=== PATIENT | female | born 1980 | race Two or more races ===

== ENCOUNTER 2019-12-04 10:38 | Emergency (ER) | payer MEDICAID, OTHER ==
[~2019-12-04] VITALS: Ht 154.9 cm; Wt 61.2 kg
[~2019-12-04 10:38] MED LIST: ALBUTEROL SULF8.5 GM INH; CIPRO500 MG PO; CIPROFLOXACIN500 M2 ORAL; IBUPROFEN600 MG PO; KEFLEX500 MG ORAL; MACROBID 100 M100 MG PO; NKM; NORCO 5-325 TA1 EACH ORAL; PROMETHAZINE-C118 M1 ORAL; PROTONIX40 MG ORAL; REGLAN10 MG ORAL; TRAMADOL HCL50 MG ORAL; ZOFRAN ODT4 MG ORAL
[2019-12-04 10:51] VITALS: BP 115/66
--- NOTE | 2019-12-04 10:57 | NUR ---
ED Nurse Note: Patient arrived to ED from home with , c/o of cough, earache, and n/v x 3 weeks. She states earache and n/v have improved, but she is here mainly for the persistent cough.
[2019-12-04] MEDS ORDERED: TAMIFLU75 MG ORAL (11:15)
[2019-12-04] MEDS ORDERED: IBUPROFEN600 MG ORAL (11:15)
[2019-12-04] MEDS ORDERED: PROMETHAZINE-C118 M1 ORAL (11:15)
[2019-12-04] MEDS ORDERED: ONDANSETRON ODT4 MG BC (11:15)
--- NOTE | 2019-12-04 11:28 | NUR ---
ER DISCHARGE NOTE: Patient is cleared to be discharged per ERMD, pt is aox4, on room air. Patient was given dc and prescription instructions. Patient was able to verbalize understanding, ID band removed. Patient ambulated out with steady gait with all her belongings.
--- NOTE | 2019-12-05 07:51 | Emergency Room Report ---
History of Present Illness General Chief Complaint: Upper Respiratory Illness Source: Patient Present Illness HPI 39-year-old female presents ED for evaluation. Complaining of cough and congestion for the last 3 days. Productive with yellowish phlegm. Denies fevers or chills. Afebrile in triage. Did not receive flu shot this year. Denies sick contacts or recent travel. No other aggravating relieving factors. Denies any other associated symptoms Allergies: Coded Allergies: No Known Allergies (Unverified , 12/18/12) Patient History Past Medical History: asthma Past Surgical History: none Pertinent Family History: none Social History: Denies: smoking, alcohol use, drug use Now: No Immunizations: UTD Reviewed Nursing Documentation: PMH: Agreed; PSxH: Agreed Nursing Documentation-PMH Past Medical History: No History, Except For Hx Asthma: Yes Review of Systems All Other Systems: negative except mentioned in HPI Physical Exam Vital Signs Date Time Temp Pulse Resp B/P (MAP) Pulse Ox O2 Delivery O2 Flow Rate FiO2 12/04/19 10:42 98.1 75 17 115/66 (82) 98 Room Air Sp02 EP Interpretation: reviewed, normal General Appearance: no apparent distress, alert, GCS 15, non-toxic Head: normocephalic, atraumatic Eyes: bilateral eye normal inspection, bilateral eye PERRL ENT: hearing grossly normal, normal pharynx, no angioedema, normal voice Neck: full range of motion, supple/symm/no masses Respiratory: chest non-tender, lungs clear, normal breath sounds, speaking full sentences Cardiovascular #1: regular rate, rhythm, no edema Cardiovascular #2: 2+ carotid (R), 2+ carotid (L), 2+ radial (R), 2+ radial (L) , 2+ dorsalis pedis (R), 2+ dorsalis pedis (L) Gastrointestinal: normal bowel sounds, non tender, soft, non-distended, no guarding, no rebound Rectal: deferred Genitourinary: normal inspection, no CVA tenderness Musculoskeletal: back normal, normal range of motion, gait/station normal, non- tender Neurologic: alert, motor strength/tone normal, oriented x3, sensory intact, responsive, speech normal Psychiatric: judgement/insight normal, memory normal, mood/affect normal, no suicidal/homicidal ideation Reflexes: 3+ bicep (R), 3+ bicep (L), 3+ tricep (R), 3+ tricep (L), 3+ knee (R) , 3+ knee (L) Lymphatic: no adenopathy Medical Decision Making Diagnostic Impression: Primary Impression: Flu-like symptoms ER Course Hospital Course 39-year-old F presents to ED complaining of bodyaches + cough Differential diagnoses include: URI, pharyngitis, otitis media, influenza Clinical course Patient placed on stretcher. After initial history physical exam reveals young female in no acute distress. Bilateral TM unremarkable, no pharyngeal erythema. Lungs clear. No CVA tenderness. Discussed findings with patient. Will discharge home with Tamiflu, cough medication, Zofran and Motrin. Safe for discharge for close outpatient follow- up. I will provide referrals Diagnosis - influenza-like symptoms Stable and discharged home with prescriptions for tamiflu, motrin, promethazine/ codeine, zofran. drink plenty of fluids. Instructed to followup with PMD. Return to ED if symptoms recur or worsen Last Vital Signs Date Time Temp Pulse Resp B/P (MAP) Pulse Ox O2 Delivery O2 Flow Rate FiO2 12/04/19 10:51 98.1 89 17 115/66 98 Room Air Status: improved Disposition: HOME, SELF-CARE Condition: Stable Scripts Ibuprofen* (MOTRIN*) 600 Mg Tablet 600 MG ORAL Q8H PRN for For Pain, #30 TAB 0 Refills Prov: Jose Gonzales MD 12/04/19 Ondansetron Odt* (ZOFRAN ODT*) 4 Mg Tab.rapdis 4 MG BC EVERY 6 HOURS PRN for Nausea & Vomiting, #10 TAB 0 Refills Prov: Jose Gonzales MD 12/04/19 Codeine/Promethazine Hcl* (PROMETHAZINE-CODEINE SYRUP*) 118 Ml Syrup 5 ML ORAL Q6H PRN for For Cough, #118 ML 0 Refills Prov: Jose Gonzales MD 12/04/19 Oseltamivir Phosphate (Tamiflu) 75 Mg Capsule 75 MG ORAL TWICE A DAY for 5 Days, CAP Prov: Jose Gonzales MD 12/04/19 Referrals: NOT CHOSEN IPA/,REFERRING (PCP) [facility] Departure Forms: Return to Work Return to Work Date: Dec 07, 2019 Work Restrictions: None Patient Instructions: Influenza, Adult, [id number] Jose Gonzales MD Dec 05, 2019 07:51
== END 2019-12-04 11:30 | disposition home or self-care (01) ==
LOC: EMR 11:12
DX: J11.1 Influenza due to unidentified influenza virus with other respiratory manifestations (principal); J45.909 Unspecified asthma, uncomplicated
CPT/HCPCS: 99282

== ENCOUNTER 2020-05-27 07:26 | Emergency (ER) | payer MEDICAID ==
[~2020-05-27] VITALS: Ht 152.4 cm; Wt 61.2 kg
[~2020-05-27 07:26] MED LIST changes: +IBUPROFEN600 MG ORAL; +ONDANSETRON ODT4 MG BC; +TAMIFLU75 MG ORAL
[2020-05-27 07:31] VITALS: BP 116/77
--- NOTE | 2020-05-27 07:41 | NUR ---
ED Nurse Note: pt. aaox4. ambulatory. patient walked into ED from home complaining of headache and sorethroat x1 week. patient reports covid test done on 05/17/20 and result negative. patient reports currently being unemployed and stays at home, reports living with her who is not sick. No acute respiratory distress noted at this time.
[2020-05-27] MEDS ORDERED: ONDANSETRON ODT4 MG BC (07:47)
[2020-05-27] MEDS ORDERED: AMOXICILLIN500 MG ORAL (07:47)
[2020-05-27] MEDS ORDERED: TYLENOL EXTRA500 MG ORAL (07:47)
--- NOTE | 2020-05-27 07:53 | Emergency Room Report ---
History of Present Illness General Chief Complaint: Sore Throat Source: Patient Present Illness HPI Disclaimer: Please note that this report is being documented using [employer] technology. This can lead to erroneous entry secondary to incorrect interpretation by the dictating instrument. HPI: 39-year-old female presents for evaluation of sore throat. Symptoms present approximately 1 week. Patient states she recently tested negative for COVID-19 on 05/17 and has no respiratory symptoms, fever but reports intermittent nausea and decreased appetite. Denies diarrhea, rash, chest pain, palpitations, shortness of breath, cough, nasal congestion. Reports pain with swallowing. She has been quarantining at home and not currently working. at home does not exhibit any similar symptoms. 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 EOMI. PERRLA. Uvula midline. Tonsils 1+ erythematous. Pharynx is erythematous with mild edema. No clear exudate. There are tender submandibular nodes bilaterally. No stridor, voice is normal, tolerating secretions. Resp: Normal work of breathing, no cough, no wheezing Skin: Intact. No abrasions, laceration or rash over the exposed skin MSK: Normal tone and bulk. Moving all extremities. No obvious deformity. Neuro: Awake and alert. Mentating appropriately Medical Decision Making Diagnostic Impression: Primary Impression: Pharyngitis ER Course 39-year female presents for evaluation of 1 week sore throat. Recently tested negative for COVID-19. Differential includes viral versus bacterial pharyngitis. She appears to be tolerating secretions and there is no evidence of abscess or other deep space infection at this time. Centor score 2. Do not believe she requires emergent labs or imaging at this time. Patient shows no respiratory symptoms however I discussed that this still may be a viral process and if symptoms persist she should have repeat testing for COVID-19 especially if she develops any respiratory symptoms. Patient will be given steroids in the ED and discharged on amoxicillin. We discussed reasons to return to the ED and I referred her to clinic for follow-up. She understands agrees with this treatment plan. Last Vital Signs Date Time Temp Pulse Resp B/P (MAP) Pulse Ox O2 Delivery O2 Flow Rate FiO2 05/27/20 07:31 98.8 89 17 116/77 94 Room Air Disposition: HOME, SELF-CARE Condition: Stable Scripts Amoxicillin* (AMOXIL*) 500 Mg Capsule 500 MG ORAL BID for 10 Days, #20 CAP Prov: Roderick Bae MD 05/27/20 Acetaminophen* (TYLENOL EXTRA STRENGTH*) 500 Mg Tablet 500 MG ORAL Q8H PRN for Prn Headache/Temp > 101, #30 TAB 0 Refills Prov: Roderick Bae MD 05/27/20 Ondansetron Odt* (ZOFRAN ODT*) 4 Mg Tab.rapdis 4 MG BC EVERY 6 HOURS PRN for Nausea & Vomiting, #10 TAB 0 Refills Prov: Roderick Bae MD 05/27/20 Referrals: [facility] Patient Instructions: Sore Throat Additional Instructions: Continue to isolate from others and obtain repeat COVID-19 testing if symptoms persist. Take the antibiotics as prescribed and finish the entire course of antibiotics even if symptoms improve over the next few days. Use the nausea medication as needed. Please follow-up with your primary care doctor in the next 1 to 3 days to discuss this emergency department visit and for reevaluation. If you have any new or worsening symptoms please return to the emergency department for reevaluation. Please note that this report is being documented using [employer] technology. This can lead to erroneous entry secondary to incorrect interpretation by the dictating instrument. Roderick Bae MD May 27, 2020 07:53
--- NOTE | 2020-05-27 07:53 | NUR ---
ED Nurse Note: patient tolerated medication without complication. patient is in no acute distress, talking in full sentences, no labored breathing noted, breathing is even and unlabored. patient denies SOB. Dr. Bae at bedside, informed about patient's O2 sat 93-94%.
--- NOTE | 2020-05-27 07:57 | NUR ---
ER DISCHARGE NOTE: Patient is cleared to be discharged per ERMD Dr. Bae at this time. instructions to follow up with PMD, referrals to clinic given, patient verbalized understanding. pt is aox4, on room air, with stable vital signs. pt was given dc and prescription instructions, pt was able to verbalize understanding, pt id band removed without complications. pt is able to ambulate with steady gait. pt took all belongings.
[2020-05-27 08:00] VITALS: BP 116/77
== END 2020-05-27 08:00 | disposition home or self-care (01) ==
LOC: EMR 07:56
DX: J02.9 Acute pharyngitis, unspecified (principal)
CPT/HCPCS: J7512; Z7502; 99282